=== PATIENT | male | born 1955 | race Caucasian/White ===

== ENCOUNTER 2020-12-19 10:01 | Emergency (ER) | payer MEDICARE ==
[~2020-12-19] VITALS: Ht 180.3 cm; Wt 115.0 kg
[2020-12-19 11:50] VITALS: BP 110/59
--- NOTE | 2020-12-19 12:08 | PHYS DOC ---
General Adult EDM: Chief Complaint: KNEE INJURY HPI: HPI: Patient is a 65 year old male who presents to the ED today complaining of mild to moderate intermittent right knee pain that began in the middle of the night. Patient denies any known injury. States the pain is worse on weightbearing. Describes the pain as sharp and constant. Review of Systems: Review of Systems: Constitutional: Denies fever or chills. [] Musculoskeletal: Reports right knee pain Integument: Denies rash. [] Neurologic: Denies headache, focal weakness or sensory changes. [] Psychiatric: Denies depression or anxiety. [] Heart Score: C/O Chest Pain: N/A Risk Factors: Risk Factors: DM, Current or recent (<one month) smoker, HTN, HLP, family history of CAD, obesity. Risk Scores: Score 0 - 3: 2.5% MACE over next 6 weeks - Discharge Home Score 4 - 6: 20.3% MACE over next 6 weeks - Admit for Clinical Observation Score 7 - 10: 72.7% MACE over next 6 weeks - Early Invasive Strategies Physical Exam: PE: Constitutional: Well developed, well nourished, no acute distress, non-toxic appearance. [] Skin: Warm, dry, no erythema, no rash. [] Back: No tenderness, no CVA tenderness. [] Extremities: Right knee is mildly swollen diffusely. Tenderness diffusely to the knee during exam, limited range of motion to the knee especially full flexion due to pain. +2 right pedal pulse. Cap refill less than 2 seconds to right toes Neurologic: Alert and oriented X 3, normal motor function, normal sensory function, no focal deficits noted. [] Psychologic: Affect normal, judgement normal, mood normal. [] EKG: EKG: [] Radiology/Procedures: Radiology/Procedures: []PROCEDURE: KNEE RIGHT 3V Three-view right knee dated 12/19/2020. No comparison available. CLINICAL INDICATION: Pain. FINDINGS: 3 views right knee show normal bony alignment. No displaced fracture. No periostitis or bone destruction. No acute osseous or articular abnormality. Mild to moderate tricompartmental hypertrophic change with small marginal osteophytes. Small joint effusion. No loose body. IMPRESSION: 1. No acute bony abnormality. 2. 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 3. Suspect small joint effusion. Electronically signed by: Radu Blanco MD (12/19/2020 12:35 PM) [id number] DICTATED and SIGNED BY: RADU BLANCO MD DATE: 12/19/20 [id number] 0 Course & Med Decision Making: Course & Med Decision Making Pertinent Labs and Imaging studies reviewed. (See chart for details) This is a 68-year-old male patient presented to the ED today with right knee pain that began last night. No known injury Right knee x-rays interpreted by radiologist were negative for any acute findings, noted for DJD and small joint effusion. Tl bandage is applied to the right knee by me. Neurovascular exam done is negative. Ice elevation encouraged. Follow-up with orthopedic doctor. Patient states he is in between states. He states he is trying to go to [place]. Encourage him to get an orthopedic doctor in [place] when he arrives there. Dragon Disclaimer: Anabelle Disclaimer: This electronic medical record was generated, in whole or in part, using a voice recognition dictation system. Departure Departure Impression: Primary Impression: Knee pain, right Qualified Codes: M25.561 - Pain in right knee Additional Impressions: Joint effusion, knee Qualified Codes: M25.461 - Effusion, right knee Right knee DJD Qualified Codes: M17.11 - Unilateral primary osteoarthritis, right knee Disposition: HOME / SELF CARE / HOMELESS Condition: STABLE Referrals: NO PCP (PCP) RADU GARCIA DO follow up in one week Patient Instructions: Arthritis, Degenerative-Brief, Knee Effusion, [id number], Knee Pain Additional Instructions: You were evaluated in the emergency room for knee pain, your right knee x-rays were negative for any acute findings, you have a small joint effusion and arthritis in your knee. Wear the Tl bandage provided as tolerated. Try to ice and elevate the extremity. Take the prescribed pain medicine as needed for pain. Scripts Diclofenac Potassium (DICLOFENAC POTASSIUM) 50 Mg Tablet 1 TAB PO BID, #14 TAB 1 Refill Prov: MELINDALIV Frances GOMEZ 12/19/20 LIV LAWRENCE Frances GOMEZ Dec 19, 2020 12:08
--- NOTE | 2020-12-19 12:37 | RAD ---
Three-view right knee dated 12/19/2020. No comparison available. CLINICAL INDICATION: Pain. FINDINGS: 3 views right knee show normal bony alignment. No displaced fracture. No periostitis or bone destruct ion. No acute osseous or articular abnormality. Mild to moderate tricompartmental hypertrophic change with small marginal osteophytes. Small joint effusion. No loose body. IMPRESSION: 1. No acute bony abnormality. 2. 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 3. Suspect small joint effusion. Electronically signed by: Radu Blanco MD (12/19/2020 12:35 PM) [id number]
[2020-12-19] MEDS ORDERED: DICL50TA2 PO (13:30)
[2020-12-19] MEDS ORDERED: KETOROLAC 60 MG/2 ML VIAL. IM ONE (13:30)
== END 2020-12-19 14:02 | disposition home or self-care (01) ==
LOC: ER 10:01
DX: M17.11 Unilateral primary osteoarthritis, right knee (principal); M25.461 Effusion, right knee
CPT/HCPCS: 73562; 96372; 99284; J1885